=== PATIENT | male | born 1980 | race Hispanic/Latino ===

== ENCOUNTER 2017-06-13 17:18 | Emergency (ER) | payer OTHER ==
[~2017-06-13] VITALS: Ht 193 cm; Wt 158.8 kg
[2017-06-13] MEDS ORDERED: HYDROCODONE/APAP 10MG-325MG TAB PO ONE (17:30)
--- NOTE | 2017-06-13 18:19 | Diagnostic Imaging Report ---
ANKLE 3+ VIEWS LEFT, FOOT LEFT COMPLETE - 3 views HISTORY: Pain. Fracture? COMPARISON: None available. FINDINGS: Bones: Oblique lucency through the tuft of the distal phalanx of the hallux identified on the oblique view only. Osseous alignment is within normal limits. Joints: The joint spaces are well-maintained. Soft tissues: Small plantar calcaneal enthesophyte. Mild Achilles enthesopathy. Bimalleolar soft tissue swelling. Soft tissue swelling about the hallux. IMPRESSION: Findings concerning for nondisplaced fracture of the distal phalanx of the hallux. Please correlate clinically for point tenderness. Signed by: Dr. Monica Kilgore M.D. on 06/13/2017 6:15 PM
== END 2017-06-13 18:42 | disposition home or self-care (01) ==
LOC: ER 17:18
DX: M79.672 Pain in left foot (principal)
CPT/HCPCS: 99283